=== PATIENT | male | born 1985 | race Caucasian/White ===

== ENCOUNTER 2018-08-11 02:30 | Emergency (ER) | payer OTHER ==
[~2018-08-11] VITALS: Ht 180.3 cm; Wt 86.2 kg
[2018-08-11] MEDS ORDERED: ACETAMINOPHEN-1 EAC1 PO (03:22)
[2018-08-11 04:05] VITALS: BP 127/82
== END 2018-08-11 04:06 | disposition home or self-care (01) ==
LOC: M.ERS 02:30
DX: M25.462 Effusion, left knee (principal); Z88.1 Allergy status to other antibiotic agents